=== PATIENT | female | born 1950 ===

== ENCOUNTER 2020-04-22 16:46 | Emergency (ER) | payer MEDICARE, MEDICAID, SELFPAY ==
[2020-04-22 18:23] VITALS: BP 150/84; PULSE 83; RESP 16; TEMP 37.1; O2SAT 99; BMI 37.0
--- NOTE | 2020-04-22 20:00 | ED.SKABFB ---
HPI - Skin/Abscess/Foreign Bdy General Chief complaint: Skin/Abscess/Foreign Body <Dima Beltran NP - Last Filed: 04/22/20 20:09> Stated complaint: itchy all over <Dima Beltran NP - Last Filed: 04/22/20 20:09> Time Seen by Provider: 04/22/20 19:59 <Dima Beltran NP - Last Filed: 04/22/20 20:09> Source: patient <Dima Beltran NP - Last Filed: 04/22/20 20:09> Mode of arrival: ambulatory <Dima Beltran NP - Last Filed: 04/22/20 20:09> Limitations: no limitations <Dima Beltran NP - Last Filed: 04/22/20 20:09> History of Present Illness HPI narrative: rash to legs and arms exposed areas in between the webbing for the past 6 days. <Dima Beltran NP - Last Filed: 04/22/20 20:09> MD complaint: rash <Dima Beltran NP - Last Filed: 04/22/20 20:09> Onset (ago): day(s) <Dima Beltran NP - Last Filed: 04/22/20 20:09> Tetanus up to date: yes <Dima Beltran NP - Last Filed: 04/22/20 20:09> Location: LUE, RUE, LLE and RLE <Dima Beltran NP - Last Filed: 04/22/20 20:09> Severity: moderate <Dima Beltran NP - Last Filed: 04/22/20 20:09> Quality: pruritic <Dima Beltran NP - Last Filed: 04/22/20 20:09> Exacerbating factors: none <Dima Beltran NP - Last Filed: 04/22/20 20:09> Associated symptoms: denies other symptoms <Dima Beltran NP - Last Filed: 04/22/20 20:09> Treatments prior to arrival: none <Dima Beltran NP - Last Filed: 04/22/20 20:09> Related Data Home medications: Previous Rx's Medication Instructions Recorded permethrin [Elimite] 1 applic TOPICAL Q14D #60 g 04/22/20 <Dima Beltran NP - Last Filed: 04/22/20 20:09> Allergies/Adverse reactions: Allergies Allergy/AdvReac Type Severity Reaction Status Date / Time penicillin V Allergy Unknown Unknown Verified 04/22/20 18:25 Penicillins [PENICILLINS] Allergy Unknown N/S Verified 04/22/20 18:25 Sulfacet-R Allergy Unknown Unknown Uncoded 04/22/20 18:25 <Dima Beltran NP - Last Filed: 04/22/20 20:09> Review of Systems Review of Systems: Constitutional: No Weight loss, No Fever, No Chills, No Night Sweats, No Fatigue, No Malaise ENT/Mouth: No Hearing loss, No Ear Pain, No Nasal Congestion, No Sinus Pain, No Hoarseness, No sore throat, No Rhinorrhea, No Swallowing Difficulty Eyes: No Eye Pain, No Swelling, No Redness, No Foreign Body, No Discharge, No Vision Changes Cardiovascular: No Chest Pain, No SOB, No Dyspnea on Exertion, No Orthopnea, No Edema, No Palpitations Respiratory: No Cough, No Sputum, No Wheezing, No Smoke Exposure, No Dyspnea Gastrointestinal: No Nausea, No Vomiting, No Diarrhea, No Constipation, No abdominal Pain, No Hematochezia, No Melena Genitourinary: no irregular bleeding, No Dysuria, No Urinary Frequency, No Hematuria, No Urinary Incontinence, No Urgency, No Flank Pain, No Urinary Flow Changes, No Hesitancy Musculoskeletal: No joint pain, No Myalgias, No Joint Swelling Skin: + Skin Lesions, No rash Neuro: No Weakness, No Numbness, No Paresthesias, No Loss of Consciousness, No Dizziness, No Headache Psych: No Anxiety/Panic, No Depression, No SI/HI/AH/VH, No Social Issues Heme/Lymph: No Bruising, No Bleeding,No Lymphadenopathy Endocrine: No Polyuria, No Polydipsia, No Temperature Intolerance <Dima Beltran NP - Last Filed: 04/22/20 20:09> Yes all other systems are reviewed and are negative <Dima Beltran NP - Last Filed: 04/22/20 20:09> PMFSH Past Medical History Medical History: Medical History (Updated 04/23/20 @ 00:01 by Juliana Braswell) Diabetes High cholesterol <Dima Beltran NP - Last Filed: 04/22/20 20:09> Surgical History: Surgical History (Updated 04/22/20 @ 18:24 by Carina Calles) History of appendectomy <Dima Beltran NP - Last Filed: 04/22/20 20:09> Social History Social History: Social History Advance Directives: No Advance Directives Information Provided: Yes <Dima Beltran NP - Last Filed: 04/22/20 20:09> Physical Exam Vital Signs: Vital Signs: Vital Signs Temp Pulse Resp BP Pulse Ox 04/22/20 18:23 98.7 F 83 16 150/84 H 99 Body Mass Index 37.0 Reviewed <Dimajuancarlos Beltran NP - Last Filed: 04/22/20 20:09> Vital Signs: Vital Signs Temp Pulse Resp BP Pulse Ox 04/22/20 18:23 98.7 F 83 16 150/84 H 99 Body Mass Index 37.0 <Jamey Horn MD - Last Filed: 04/27/20 15:24> Const: General: cooperative and healthy appearing; No acute distress or intoxicated appearing <Dima Beltran NP - Last Filed: 04/22/20 20:09> Nutritional Appearance: average body habitus <Dimajuancarlos Beltran NP - Last Filed: 04/22/20 20:09> Orientation/consciousness: patient oriented x3 <Dima Beltran NP - Last Filed: 04/22/20 20:09> HENMT: Head: Yes normal to inspection <Dimajuancarlos Beltran NP - Last Filed: 04/22/20 20:09> Ears: hearing grossly normal bilaterally <Dimajuancarlos Beltran NP - Last Filed: 04/22/20 20:09> Eyes: General: appearance normal, both eyes and all related structures <Dmia Beltran NP - Last Filed: 04/22/20 20:09> Visual Magallanes: normal visual magallanes by confrontation <Dima MOHINDER Beltran - Last Filed: 04/22/20 20:09> Chest: Chest palpation & inspection: normal inspection of the chest <Dima Beltran NP - Last Filed: 04/22/20 20:09> Resp: Effort & Inspection: normal respiratory effort <Dima Beltran NP - Last Filed: 04/22/20 20:09> Cardio: Jugular venous distension: no JVD <Dima Beltran NP - Last Filed: 04/22/20 20:09> GI: Inspection: Yes normal to inspection <Dima Beltran NP - Last Filed: 04/22/20 20:09> Percussion: Yes normal to percussion <Dima Beltran NP - Last Filed: 04/22/20 20:09> Auscultation: normal bowel sounds <Dima Beltran NP - Last Filed: 04/22/20 20:09> : General: Yes no CVA tenderness <[facility] MOHINDER Beltran - Last Filed: 04/22/20 20:09> Back/Spine/Pelvis: Back: no CVA tenderness <[facility] MOHINDER Beltran - Last Filed: 04/22/20 20:09> Skin: Rashes: rashes noted ( Small less than 0.5 mm macular type indurated rash to the BUE ) <Dimajuancarlos Beltran NP - Last Filed: 04/22/20 20:09> Neuro: General: patient oriented x3 <Dima Beltran NP - Last Filed: 04/22/20 20:09> Extrem: General: Yes normal to inspection <Dima Beltran NP - Last Filed: 04/22/20 20:09> Course Course Course Narrative: Rash consistent with scabies. Home care instructions reviewed. Permethrin Rx provided. <Dima Beltran NP - Last Filed: 04/22/20 20:09> I have reviewed the chart <Jamey Horn MD - Last Filed: 04/27/20 15:24> MDM - Skin/Abscess/Foreign Bdy Differential Diagnosis Differential diagnosis: Likely viral exanthem, dermatophytosis, urticaria, allergic reaction to drug, cellulitis, eczema, insect bites, impetigo and contact dermatitis; Unlikely abscess of skin or subcutaneous tissue and herpes zoster <Dima Beltran NP - Last Filed: 04/22/20 20:09> Discharge Plan Discharge Clinical Impression: Scabies <Dima Beltran NP - Last Filed: 04/22/20 20:09> Patient Disposition: Home, Self-Care <Dima Beltran NP - Last Filed: 04/22/20 20:09> Instructions: Scabies (ED) <Dima Beltran NP - Last Filed: 04/22/20 20:09> Prescriptions: New permethrin [Elimite] 5 % cream 1 applic topical Q14D Qty: 60 RF: 1 <Dima Beltran NP - Last Filed: 04/22/20 20:09> Interventions: ED Discharge Assessment Last Done: 04/22/20 20:08 <Dima Beltran NP - Last Filed: 04/22/20 20:09> Discharge Date/Time: 04/22/20 20:00 <Dima Beltran NP - Last Filed: 04/22/20 20:09>
== END 2020-04-22 20:00 | disposition home or self-care (01) ==
PROVIDERS: Emergency Provider Emergency Medicine; PCP Internal Medicine
DX: B86 Scabies (principal); E11.9 Type 2 diabetes mellitus without complications
CPT/HCPCS: 99283

== ENCOUNTER 2020-04-27 17:37 | Emergency (ER) | payer MEDICARE, MEDICAID, SELFPAY ==
[2020-04-27 18:03] VITALS: BP 116/71; PULSE 86; RESP 18; TEMP 36.2; O2SAT 98; BMI 38.0
--- NOTE | 2020-04-27 19:01 | ED.SKABFB ---
HPI - Skin/Abscess/Foreign Bdy General Chief complaint: Skin/Abscess/Foreign Body Stated complaint: rash Source: patient Mode of arrival: ambulatory Limitations: no limitations History of Present Illness HPI narrative: Patient presents to ED for itchy rash on upper or lower extremities. Patient denies any fever and chills. Patient states she was seen last week for scabies and given promethazine and took it only once. Patient states he still having itchiness and rash. Patient states no chest pain, shortness of breath, swelling of lips, tongue, or sensation of throat closing. MD complaint: rash Related Data Previous Rx's Medication Instructions Recorded permethrin [Elimite] 1 applic TOPICAL Q14D #60 g 04/22/20 clindamycin HCl 300 mg PO Q8H #30 cap 04/27/20 diphenhydramine HCl [Benadryl] 25 mg PO TID PRN #21 cap 04/27/20 permethrin 1 applic TOPICAL Q14D #60 g 04/27/20 prednisone 40 mg PO DAILY #10 tab 04/27/20 Allergies Allergy/AdvReac Type Severity Reaction Status Date / Time penicillin V Allergy Unknown Unknown Verified 04/22/20 18:25 Penicillins [PENICILLINS] Allergy Unknown N/S Verified 04/22/20 18:25 Sulfacet-R Allergy Unknown Unknown Uncoded 04/22/20 18:25 Review of Systems Review of Systems: Patient presents to ED for rash on upper lower extremities. Denies any fever, chills, going to the cox, tick bite, headache, swelling of lips, swelling of tongue, sensation of throat closing, shortness of breath, chest pain, diarrhea, headache, neck stiffness, or any other concerning symptoms. Yes all other systems are reviewed and are negative PMFSH Past Medical History Medical History (Updated 04/27/20 @ 19:17 by LOPEZ Ferreira) Diabetes High cholesterol Surgical History History of appendectomy Social History Social History Alcohol intake: never Smoked in Last 30 Days: No Use of substances other than those prescribed or required for medical reasons: No Advance Directives: No Advance Directives Information Provided: No Physical Exam Vital Signs: Vital Signs: Vital Signs Temp Pulse Resp BP Pulse Ox 04/27/20 18:03 97.1 F 86 18 116/71 98 Body Mass Index 38.0 Const: General: cooperative, healthy appearing, comfortable, no acute distress and well developed Orientation/consciousness: oriented to person, oriented to place, oriented to time and patient oriented x3 HENMT: Head: Yes normal to inspection Eyes: General: appearance normal, both eyes and all related structures Neck: Neck: Yes normal visual inspection and Yes full ROM Chest: Chest palpation & inspection: normal inspection of the chest and normal palpation of entire chest wall Resp: Effort & Inspection: normal respiratory effort and able to speak in complete sentences Cardio: Jugular venous distension: no JVD Heart sounds: S1 normal heart sound present and S2 normal heart sound present GI: Inspection: Yes normal to inspection Palpation (GI): Soft to palpation, not firm, nontender, no guarding and not rigid : General: No CVA tenderness and Yes no CVA tenderness Back/Spine/Pelvis: Back: no CVA tenderness, No CVA tenderness and No back tenderness Skin: Other: appears to be like patient has bites/bug bites on upper and lower extremities. Presented scabies. Negative any fluctuance to indicate any abscess. Negative any vesicular lesions to indicate shingles. Upon further evaluation patient shows right ankle small wound with slight erythematous and clear drainage. Patient states she was scratching so hard she created a little wound that is infected. Neuro: General: oriented to person, oriented to place, oriented to time, patient oriented x3 and gait normal Course Reevaluation(s) Reevaluation #1: History physical exam indicate scabies/bug bites. Patient discharged with permethrin, prednisone, Benadryl, and clindamycin. Patient given clindamycin for infected wound Time: 19:15 MDM - Skin/Abscess/Foreign Bdy MDM Narrative Medical decision making narrative: scabies. Wound infection. Discharge Plan Discharge Clinical Impression: Scabies, Wound cellulitis Patient Disposition: Home, Self-Care Instructions: Wound Infection (ED), Scabies (ED) Additional Instructions: Return to the ED immediately for any worsening rash, swelling of extremities, red streak, fever, chills, pus discharge from wound on ankle, severe pain of ankle /foot, weakness, or any other concerning symptoms. Prescriptions: New permethrin 5 % cream 1 applic topical Q14D Qty: 60 RF: 0 prednisone 20 mg tablet 40 mg PO DAILY Qty: 10 RF: 0 diphenhydramine HCl [Benadryl] 25 mg capsule 25 mg PO TID PRN (Reason: itching) Qty: 21 RF: 0 clindamycin HCl 300 mg capsule 300 mg PO Q8H Qty: 30 RF: 0 No Action permethrin [Elimite] 5 % cream 1 applic topical Q14D Qty: 60 RF: 1 Referrals: Cheyenne Hollis MD [Primary Care Provider] - 2 days ( generalized Scabies and right ankle wound infection.) Interventions: ED Discharge Assessment Last Done: 04/27/20 19:24 Discharge Date/Time: 04/27/20 19:26
== END 2020-04-27 19:26 | disposition home or self-care (01) ==
PROVIDERS: Emergency Provider Emergency Medicine Emergency Medical Services; PCP Internal Medicine
DX: B86 Scabies (principal); L03.115 Cellulitis of right lower limb; E11.9 Type 2 diabetes mellitus without complications
CPT/HCPCS: 99283; 99284

== ENCOUNTER 2020-05-25 05:32 | Outpatient (REF) | payer MEDICARE, MEDICAID, SELFPAY | END 2020-05-25 05:33 | disposition home or self-care (01) | LOC: HO.RADIR 05:32 | PROVIDERS: Visit Provider Anesthesiology | DX: Z13.89 Encounter for screening for other disorder (principal) ==

== ENCOUNTER 2020-05-25 05:34 | Outpatient (REF) | payer MEDICARE, MEDICAID, SELFPAY | END 2020-05-25 05:35 | disposition home or self-care (01) | LOC: HO.RADIR 05:34 | PROVIDERS: Visit Provider Anesthesiology | DX: Z13.89 Encounter for screening for other disorder (principal) ==

== ENCOUNTER 2020-06-08 05:58 | Outpatient (REF) | payer MEDICARE, MEDICAID, SELFPAY | END 2020-06-08 05:59 | disposition home or self-care (01) | LOC: HO.RADIR 05:58 | PROVIDERS: PCP Internal Medicine; Visit Provider Anesthesiology | DX: Z13.89 Encounter for screening for other disorder (principal) ==

== ENCOUNTER 2020-07-13 05:22 | Outpatient (REF) | payer MEDICARE, MEDICAID, SELFPAY | END 2020-07-13 05:23 | disposition home or self-care (01) | LOC: HO.RADIR 05:22 | PROVIDERS: Visit Provider Anesthesiology | DX: Z13.89 Encounter for screening for other disorder (principal) | CPT/HCPCS: J3300; Q9967 ==

== ENCOUNTER → 2021-07-18 13:02 | Outpatient (BNVA) | payer MEDICARE, MEDICAID, SELFPAY | PROVIDERS: PCP Internal Medicine; Referring Provider Internal Medicine; Visit Provider Nurse Practitioner Family | DX: Z12.11 Encounter for screening for malignant neoplasm of colon (principal); K58.2 Mixed irritable bowel syndrome; K21.9 Gastro-esophageal reflux disease without esophagitis | CPT/HCPCS: 99202 ==

== ENCOUNTER 2021-07-21 15:10 | Outpatient (REF) | payer MEDICARE, MEDICAID, SELFPAY | END 2021-07-21 15:11 | disposition home or self-care (01) | LOC: HO.LNP 15:10 | PROVIDERS: Visit Provider Nurse Practitioner Family | DX: K21.9 Gastro-esophageal reflux disease without esophagitis (principal) | CPT/HCPCS: 87338 ==

== ENCOUNTER 2021-08-04 15:18 | Outpatient (REF) | payer MEDICARE, MEDICAID, SELFPAY ==
--- NOTE | ~2021-08-04 | MM_ITS ---
EXAMINATION: MM SCREENING DIGITAL BREAST TOMOSYNTHESIS, BILATERAL CLINICAL INFORMATION: Screening. Asymptomatic. The lifetime risk of breast cancer based on the Tyrer-Cuzick Model is 2.6%. COMPARISON: Mammography: February 09, 2014 and studies dating back to December 06, 2011 TECHNIQUE: Digital breast tomosynthesis is performed in both the craniocaudal and mediolateral oblique views along with computer-aided detection (CAD). Synthesized 2D images are generated from the tomosynthesis. FINDINGS: There are scattered areas of fibroglandular density (ACR BI-RADS breast composition Category b). There are no significant masses, abnormal calcifications, or other abnormalities. MM/MM tomosynthesis screening BI IMPRESSION: There are no significant changes from prior study. ASSESSMENT: BI-RADS 1: Negative RECOMMENDATION: Routine annual mammography screening. This patient's information was entered into a reminder system with a target due date for their next mammogram.
== END 2021-08-04 15:19 | disposition home or self-care (01) ==
LOC: HO.MAMMO 15:18
PROVIDERS: PCP Internal Medicine; Visit Provider Internal Medicine
DX: Z12.31 Encounter for screening mammogram for malignant neoplasm of breast (principal)
CPT/HCPCS: 77063; 77067

== ENCOUNTER 2021-08-22 11:59 | Outpatient (REF) | payer MEDICARE, MEDICAID, SELFPAY ==
[2021-08-22 13:43] LABS: Hematocrit 42.3 % (37.0-47.0); Hemoglobin 13.2 g/dl (12.0-16.0); Mean Corpuscular HGB Conc 31.2 g/dl (31.0-35.0); Mean Corpuscular Hemoglobin 26.1 pg (27.0-33.0); Mean Corpuscular Volume 83.6 fL (80.0-98.0); Mean Platelet Volume 11.9 fL (9.4-12.3); Platelet Count 247 X10*3/uL (160-400); Red Blood Count 5.06 X10*6/uL (4.20-5.50); Red Cell Distribution Width 14.2 % (11.0-16.0); White Blood Count 13.2 X10*3/uL (4.8-10.8)
[2021-08-22 14:08] LABS: Alanine Aminotransferase 8 U/L (0-31); Albumin Level 4.2 g/dL (3.5-5.0); Alkaline Phosphatase 105 U/L (39-117); Anion Gap 13 (12-20); Aspartate Amino Transferase 13 U/L (5-31); Bilirubin Total 0.4 mg/dL (0.0-1.0); Blood Urea Nitrogen 20 mg/dL (9-16); Calcium 9.6 mg/dL (8.4-10.2); Carbon Dioxide 28 mmol/L (22-29); Chloride 104 mmol/L (96-108); Estimated Glomerular Filt Rate > 60; Glucose Random 107 mg/dL (60-115); Sodium 141 mmol/L (135-145); Total Protein 7.1 g/dL (6.5-8.0)
[2021-08-22 14:37] LABS: Folate 10.5 ng/mL (> or = 4.0); Vitamin B12 313 pg/mL (200-900)
[2021-08-26 08:27] LABS: Transglutaminase IgA <1.0 U/mL
[2021-08-26 13:16] LABS: Vitamin D 25-OH, D2 <4 ng/mL; Vitamin D 25-OH, D3 43 ng/mL; Vitamin D 25-OH, Total 43 ng/mL (30-100)
== END 2021-08-22 12:00 | disposition home or self-care (01) ==
LOC: HO.LAB 11:59
PROVIDERS: PCP Internal Medicine; Referring Provider Internal Medicine; Visit Provider Nurse Practitioner Family
DX: Z01.818 Encounter for other preprocedural examination (principal); R10.11 Right upper quadrant pain; R14.0 Abdominal distension (gaseous); R19.7 Diarrhea, unspecified; E55.9 Vitamin D deficiency, unspecified; K58.9 Irritable bowel syndrome, unspecified; K21.9 Gastro-esophageal reflux disease without esophagitis
CPT/HCPCS: 36415; 80053; 82306; 82607; 82746; 84443; 85027; 86364; 99212

== ENCOUNTER 2021-10-07 09:43 | Day surgery (SDC) | payer MEDICARE, MEDICAID, SELFPAY ==
--- NOTE | 2021-10-06 09:13 | HO.ANESPROP2 ---
Documented by User: Zoya Fox NP 10/06/21 09:14 HPI - Anesthesia Eval Consult details Narrative: 71yo F for Upper Endoscopy and Colonoscopy PMFSH Active Problems Active Problems: All Active Problems (Updated 05/24/20 @ 16:35 by Татьяна Gill NP) Postlaminectomy syndrome (Acute) Past Medical History Medical History (Updated 05/24/20 @ 16:35 by Татьяна Gill NP) Diabetes High cholesterol Family History Family History Father Cancer Paternal Grandmother Cancer Other Diabetes Surgical History Surgical History History of appendectomy History of esophagogastroduodenoscopy (EGD) Hx of colonoscopy Social History Social History Alcohol intake: never Patient Tobacco Use Status: Former Tobacco user Tobacco use type: Cigarette Use of substances other than those prescribed or required for medical reasons: No Are you DNR?: No Advance Directives: No Advance Directives Information Provided: Yes Recently lost weight without trying: Yes How much weight loss: 14-23 pounds Nutrition Risks: No Nutritional Risk Meds Allergies Allergy/AdvReac Type Severity Reaction Status Date / Time penicillin V Allergy Unknown Unknown Verified 08/22/21 12:01 Penicillins [PENICILLINS] Allergy Unknown N/S Verified 08/22/21 12:01 Sulfacet-R Allergy Unknown Unknown Uncoded 07/18/21 13:10 Home Medications Medication Instructions Recorded Confirmed Last Taken Type glipizide 5 mg tablet, extended 1 tab PO DAILY 10/07/21 10/07/21 Unknown History release 24 hr sitagliptin 50 mg-metformin 1,000 1 tab PO BID 10/07/21 10/07/21 Unknown History mg tablet (Janumet) sitagliptin 50 mg-metformin 1,000 1 tab PO BID 10/07/21 10/07/21 Unknown History mg tablet (Julumet) Exam Exam Date and Time: October 06, 2021 0913 Pertinent Lab Results Pertinent Lab Results: Laboratory Tests 08/22/21 08/22/21 13:23 13:23 WBC 13.2 H Hgb 13.2 Hct 42.3 Plt Count 247 Sodium 141 Potassium 4.0 Chloride 104 Carbon Dioxide 28 BUN 20 H Creatinine 0.89 Assessment and Plan Assessment Anesthesia Assessment: Chart Reviewed Documented by User: Fariba Langford MD 10/07/21 12:03 [facility] Past Medical History Medical History (Updated 05/24/20 @ 16:35 by Татьяна Gill NP) Diabetes High cholesterol Family History Family History Father Cancer Paternal Grandmother Cancer Other Diabetes Family history of problems with anesthesia: No Surgical History Surgical History History of appendectomy History of esophagogastroduodenoscopy (EGD) Hx of colonoscopy History of Problems with Anesthesia: No Social History Social History Alcohol intake: never Patient Tobacco Use Status: Former Tobacco user Tobacco use type: Cigarette Use of substances other than those prescribed or required for medical reasons: No Are you DNR?: No Advance Directives: No Advance Directives Information Provided: Yes Recently lost weight without trying: Yes How much weight loss: 14-23 pounds Nutrition Risks: No Nutritional Risk Meds Allergies Allergy/AdvReac Type Severity Reaction Status Date / Time penicillin V Allergy Unknown Unknown Verified 08/22/21 12:01 Penicillins [PENICILLINS] Allergy Unknown N/S Verified 08/22/21 12:01 Sulfacet-R Allergy Unknown Unknown Uncoded 07/18/21 13:10 Home Medications Medication Instructions Recorded Confirmed Last Taken Type glipizide 5 mg tablet, extended 1 tab PO DAILY 10/07/21 10/07/21 Unknown History release 24 hr sitagliptin 50 mg-metformin 1,000 1 tab PO BID 10/07/21 10/07/21 Unknown History mg tablet (Janumet) sitagliptin 50 mg-metformin 1,000 1 tab PO BID 10/07/21 10/07/21 Unknown History mg tablet (Janumet) Exam Airway Mallampati Class: II (Missing a couple nothing loose) TM Dist: >3cm Neck ROM: Full Heart: rrr Lungs: cta Assessment and Plan Assessment Anesthesia Assessment: Anesthesia Plan Discussed and Chart Reviewed Final Anesthetic Review Family History of Problems with Anesthesia: No History of Problems with Anesthesia: No NPO: Yes ASA Class: II Final Preanesthetic Review: No Changes in Pt Med Stat, Meds/Allgs Chart Reviewed and Consent Obtained/Reviewed Patient Risk: Intermediate Procedure Risk: Intermediate Anesthetic Plan Anesthetic Plan: MAC: Disposition: Standard PACU
[2021-10-07 11:20] VITALS: BMI 34.0
[2021-10-07 11:28] VITALS: BP 127/64; PULSE 98; RESP 16; TEMP 36.5; O2SAT 98
[2021-10-07] MEDS: Lactated Ringers 1,000 ML 100 ML IVCONT (11:43)
[2021-10-07 11:50] LABS: Glucose, Whole Blood 122 mg/dL (60-115)
--- NOTE | 2021-10-07 11:58 | MHC.SHP ---
Pre-Procedural Eval Section A Date of Service: 10/07/21 The patient is an INPATIENT: No The History & Physical has been completed within 30 days and I have reviewed it.: No Section B Chief Complaint: Screening, GERD Details of Present Illness: Screening, GERD, IBS Relevant Family History (Specify if Yes): No Relevant Social History: None Present Medications: see Short Stay Collaborative assessment Medical History: Significant History (Diabetes High cholesterol) History of Previous Operations: Relevant previous surgery/procedure and date(s) (EGD, colon, status post appendectomy) Allergies: Allergies Allergy/AdvReac Type Severity Reaction Status Date / Time penicillin V Allergy Unknown Unknown Verified 08/22/21 12:01 Penicillins [PENICILLINS] Allergy Unknown N/S Verified 08/22/21 12:01 Sulfacet-R Allergy Unknown Unknown Uncoded 07/18/21 13:10 Review of Systems Sugical H&P ROS: Negative: Constitution, Cardiovascular and Respiratory and Yes, Specify: Gastrointestinal (GERD, constipation) Exam Surgical H&P Exam: Normal: Heart, Normal: Lungs, Normal: Extremities and Normal: Abdomen Plan Diagnosis/Plan: Unchanged I have reviewed the history and physical and performed a pertinent physical examination on my patient. No changes have occurred unless specified.
--- NOTE | 2021-10-07 12:01 | PM.OP ---
Brief Operative Note Date of Service: 10/07/21 Pre-op diagnosis: Colon cancer screening, history of colon polyps, GERD, abdominal bloating, IBS with constipation Post-op diagnosis: other (Gastric polyps, gastritis, colon polyp, diverticulosis, hemorrhoids) Procedure: FLEXIBLE TRANSORAL UPPER GASTROINTESTINAL ENDOSCOPY WITH BIOPSIES AND COLONOSCOPY TILL CECUM WITH SNARE POLYPECTOMY UPPER ENDOSCOPY Consent: Indications for the procedure and potential complications of bleeding, perforation, reaction to medications and missed diagnosis were discussed with the patient and informed consent was obtained. Instrument: Olympus GIF H 190 mid size upper endoscope Monitoring: Vital signs and clinical assessment, continuous EKG monitoring, Pulse oximetry, Carbon Dioxide monitoring and blood pressure monitoring were done throughout the procedure. Procedure: The patient was placed in the left lateral decubitis position and pre-procedure medications were administered and a bite block was placed. The endoscope was inserted into the mouth and advanced under direct vision to the third part of duodenum. A careful inspection was made as the upper endoscope was withdrawn including a retroflexed examination of the proximal stomach; Findings and interventions are described below. Findings: Larynx: Normal Esophagus: GE junction at 38 cms. No esophagitis or Fountain's. Stomach: A few 5 to 8 mm benign appearing polyps in the gastric body - biopsied. Moderate diffuse gastric erythema. Biopsies were obtained. Grade 2 flap valve on retroflexed examination of the cardia. Duodenum: Normal bulb and descending duodenum. Biopsies were obtained from 3rd part of duodenum to check for celiac sprue. Intervention: Biopsies as noted above COLONOSCOPY PROCEDURE NOTE Consent: Indications for the procedure and potential complications of bleeding, perforation, reaction to medications and missed diagnosis were discussed with the patient and informed consent was obtained. Instrument: Olympus PCF H 190 L variable stiffness pediatric colonoscope Monitoring: Vital signs and clinical assessment, intermittent blood pressure monitoring, continuous EKG monitoring, Pulse oximetry and Carbon Dioxide monitoring were done throughout the procedure. Colon withdrawl time was 21 minutes. Procedure: The patient was placed in the left lateral decubitis position and pre-procedure medications were administered. After a digital rectal examination of the ano-rectum, the video colonoscope was inserted into the rectum and advanced through the colon to the cecum. The colonoscope was slowly withdrawn in a retrograde panoramic fashion and the colon mucosa was carefully examined including a retroflexed view of the rectum. Findings and interventions are described below. Procedure Difficulty: : Without difficulty Findings: Terminal Ileum: Not evaluated Cecum: A 10-12 mm sessile polyp removed with a hot snare Ascending Colon: Normal Transverse Colon: Normal Descending Colon: Normal Sigmoid Colon: Moderate diverticulosis Rectum: Normal Ano-rectum: Moderate internal hemorrhoids Colon preparation: Good after copious irrigation Impression and Post Procedure Diagnosis: Endoscopy Findings: STOMACH: A few 5 to 8 mm benign appearing polyps in the gastric body - biopsied. Moderate diffuse gastric erythema. Biopsies were obtained. DUODENUM: Normal - biopsied to check for celiac sprue. Colonoscopy Findings: One medium sized polyp removed Moderate diverticulosis seen in the entire colon Moderate hemorrhoids on retroflexed exam. Plan: Await pathology results Patient has an appointment on 11/16/21 in the [facility] with Pratibha Martinez FNP-BC . Repeat Colonoscopy interval based on path results - in 3 years if polyps are adenomatous and 5 years if polyps are hyperplastic (due to a hx of colon polyps). Above findings were reviewed with the patient and gastric polyps, colon polyps and diverticulosis handouts were given in the discharge area Surgeon: Merry Ramos MD Anesthesia: MAC (Dr Duncan & Dr Eid) Was an Knitting Machine Fixer used for this Procedure?: No Knitting Machine Fixer: Adura Julian Estimated blood loss (mL): 0 Pathology: other (A. small bowel bxs, R/O celiac B. gastric antrum bxs, R/O H. pylori C. gastric polyp D. cecal polyp) Condition: stable Disposition: PACU
--- NOTE | 2021-10-07 12:05 | P.OP_ITS ---
Operative Note Operative Note Date of Service: 10/07/21 Narrative: Pre-op diagnosis: Colon cancer screening, history of colon polyps, GERD, abdominal bloating, IBS with constipation Post-op diagnosis:?other (Gastric polyps, gastritis, colon polyp, diverticulosis, hemorrhoids) Procedure: FLEXIBLE TRANSORAL UPPER GASTROINTESTINAL ENDOSCOPY WITH BIOPSIES AND COLONOSCOPY TILL CECUM WITH SNARE POLYPECTOMY UPPER ENDOSCOPY Consent:?Indications for the procedure and potential complications of bleeding, perforation, reaction to medications and missed diagnosis were discussed with the patient and informed consent was obtained. Instrument:?Olympus GIF H 190 mid size upper endoscope Monitoring: Vital signs and clinical assessment, continuous EKG monitoring, Pulse oximetry, Carbon Dioxide monitoring and blood pressure monitoring were done throughout the procedure. Procedure:?The patient was placed in the left lateral decubitis position and pre-procedure medications were administered and a bite block was placed. The endoscope was inserted into the mouth and advanced under direct vision to the third part of duodenum. A careful inspection was made as the upper endoscope was withdrawn including a retroflexed examination of the proximal stomach; Findings and interventions are described below. Findings: Larynx:? Normal Esophagus:?GE junction at 38 cms.? No esophagitis or Fountain's. Stomach:?A few 5 to 8 mm benign appearing polyps in the gastric body - biopsied. Moderate diffuse gastric erythema. Biopsies were obtained. Grade 2 flap valve on retroflexed examination of the cardia. Duodenum:?Normal bulb and descending duodenum.? Biopsies were obtained from 3rd part of duodenum to check for celiac sprue. Intervention:?Biopsies as noted above COLONOSCOPY PROCEDURE NOTE Consent:?Indications for the procedure and potential complications of bleeding, perforation, reaction to medications and missed diagnosis were discussed with the patient and informed consent was obtained. Instrument:?Olympus PCF H 190 L variable stiffness pediatric colonoscope Monitoring:?Vital signs and clinical assessment, intermittent blood pressure monitoring, continuous EKG monitoring, Pulse oximetry and Carbon Dioxide monitoring were done throughout the procedure. Colon withdrawl time was 21 minutes. Procedure:?The patient was placed in the left lateral decubitis position and pre-procedure medications were administered. After a digital rectal examination of the ano-rectum, the video colonoscope was inserted into the rectum and advanced through the colon to the cecum. The colonoscope was slowly withdrawn in a retrograde panoramic fashion and the colon mucosa was carefully examined including a retroflexed view of the rectum. Findings and interventions are described below. Procedure Difficulty:?: Without difficulty Findings: Terminal Ileum: Not evaluated Cecum:? A 10-12 mm sessile polyp removed with a hot snare Ascending Colon:??Normal Transverse Colon:??Normal Descending Colon:? Normal Sigmoid Colon:??Moderate diverticulosis Rectum:??Normal Ano-rectum:??Moderate internal hemorrhoids Colon preparation:? Good after copious irrigation Impression and Post Procedure Diagnosis: Endoscopy Findings: STOMACH: A few 5 to 8 mm benign appearing polyps in the gastric body - biopsied. Moderate diffuse gastric erythema. Biopsies were obtained. DUODENUM: Normal - biopsied to check for celiac sprue. Colonoscopy Findings: One medium sized polyp removed Moderate diverticulosis seen in the entire colon Moderate hemorrhoids on retroflexed exam. Plan: Await pathology results Patient has an appointment on 11/16/21 in the [facility] with Pratibha Martinez FNP- [facility] . Repeat Colonoscopy interval based on path results - in 3 years if polyps are adenomatous and 5 years if polyps are hyperplastic (due to a hx of colon polyps ). Above findings were reviewed with the patient and gastric polyps, colon polyps and diverticulosis handouts were given in the discharge area Surgeon: Merry Ramos MD Anesthesia:?MAC (Dr Duncan & Dr Eid) Was an Cobol Programmer used for this Procedure?:?No Cobol Programmer:?Audra Julian Estimated blood loss (mL):?0 Pathology:?other (A. small bowel bxs, R/O celiac? B. gastric antrum bxs, R/O H. pylori? C. gastric polyp? D. cecal polyp) Condition:?stable Disposition:?PACU
[2021-10-07 13:11] VITALS: BP 106/58; PULSE 99; RESP 16; TEMP 36.3; O2SAT 97
[2021-10-07 13:26] VITALS: BP 107/65; PULSE 90; RESP 16; TEMP 36.3; O2SAT 99
== END 2021-10-07 13:59 | disposition home or self-care (01) ==
PROVIDERS: PCP Internal Medicine; Visit Provider Internal Medicine Gastroenterology
PROC: (CPT 45385; principal; 2021-10-07 11:10)
DX: Z12.11 Encounter for screening for malignant neoplasm of colon (principal); D12.0 Benign neoplasm of cecum; K57.30 Diverticulosis of large intestine without perforation or abscess without bleeding; K64.8 Other hemorrhoids; K58.1 Irritable bowel syndrome with constipation; Z86.010 Personal history of colon polyps; K21.9 Gastro-esophageal reflux disease without esophagitis; K29.70 Gastritis, unspecified, without bleeding; K31.7 Polyp of stomach and duodenum; E11.9 Type 2 diabetes mellitus without complications; E78.00 Pure hypercholesterolemia, unspecified; Z79.899 Other long term (current) drug therapy; Z88.0 Allergy status to penicillin
CPT/HCPCS: 45385; 43239; 82947; 88305; 88342

== ENCOUNTER 2021-11-16 14:32 | Outpatient (REF) | payer MEDICARE, MEDICAID, SELFPAY ==
--- NOTE | ~2021-11-16 | XR_ITS ---
EXAMINATION: XR SHOULDER, RIGHT XR SHOULDER, LEFT CLINICAL INFORMATION: Bilateral shoulder pain COMPARISON: None TECHNIQUE: Each shoulder is imaged in 4 views. There are total of 8 views. FINDINGS: Right: Normal bony mineralization. No fracture or destructive process or visible rotator cuff calcifications. The acromioclavicular alignment is normal. There are mild degenerative changes AC joint with superior spurring. There is spurring from the superior lateral acromium. There is laxity of the glenohumeral joint with low seating of the humeral head articulating with the inferior half of the glenoid fossa. Left: Normal bony mineralization. No fracture or destructive process. There is mild calcific tendinosis in region of distal superior rotator cuff adjacent to greater tuberosity. The acromioclavicular alignment is normal. There are mild degenerative changes AC joint with superior spurring. There is spurring from the superior lateral acromium. Mild laxity of the glenohumeral joint of lesser severity than that on the right with the humeral head articulating with the lower glenoid fossa. XR/XR shoulder LT min 2V IMPRESSION: Right: -Degenerative changes acromioclavicular joint. Spurring superior lateral acromium at origin deltoid. -Laxity glenohumeral joint with low seating of the humeral head articulating with the inferior half of the glenoid fossa. Left: -Mild calcific tendinosis distal superior rotator cuff. -Degenerative changes acromioclavicular joint. Spurring superior lateral acromium at origin deltoid. -Laxity glenohumeral joint with low seating of the humeral head, lesser severity than right.
--- NOTE | ~2021-11-16 | XR_ITS ---
EXAMINATION: XR SHOULDER, RIGHT XR SHOULDER, LEFT CLINICAL INFORMATION: Bilateral shoulder pain COMPARISON: None TECHNIQUE: Each shoulder is imaged in 4 views. There are total of 8 views. FINDINGS: Right: Normal bony mineralization. No fracture or destructive process or visible rotator cuff calcifications. The acromioclavicular alignment is normal. There are mild degenerative changes AC joint with superior spurring. There is spurring from the superior lateral acromium. There is laxity of the glenohumeral joint with low seating of the humeral head articulating with the inferior half of the glenoid fossa. Left: Normal bony mineralization. No fracture or destructive process. There is mild calcific tendinosis in region of distal superior rotator cuff adjacent to greater tuberosity. The acromioclavicular alignment is normal. There are mild degenerative changes AC joint with superior spurring. There is spurring from the superior lateral acromium. Mild laxity of the glenohumeral joint of lesser severity than that on the right with the humeral head articulating with the lower glenoid fossa. XR/XR shoulder RT min 2V IMPRESSION: Right: -Degenerative changes acromioclavicular joint. Spurring superior lateral acromium at origin deltoid. -Laxity glenohumeral joint with low seating of the humeral head articulating with the inferior half of the glenoid fossa. Left: -Mild calcific tendinosis distal superior rotator cuff. -Degenerative changes acromioclavicular joint. Spurring superior lateral acromium at origin deltoid. -Laxity glenohumeral joint with low seating of the humeral head, lesser severity than right.
== END 2021-11-16 14:33 | disposition home or self-care (01) ==
LOC: HO.XRAY 14:32
PROVIDERS: PCP Internal Medicine; Referring Provider Internal Medicine; Visit Provider Nurse Practitioner Family
DX: M25.511 Pain in right shoulder (principal); M25.512 Pain in left shoulder; D36.9 Benign neoplasm, unspecified site; K21.9 Gastro-esophageal reflux disease without esophagitis; K59.01 Slow transit constipation; Z98.890 Other specified postprocedural states
CPT/HCPCS: 73030; 99212

== ENCOUNTER → 2021-12-30 13:54 | Outpatient (BNVA) | payer MEDICARE, MEDICAID, SELFPAY | PROVIDERS: PCP Internal Medicine; Visit Provider Physician Assistant | DX: M75.22 Bicipital tendinitis, left shoulder (principal); M75.21 Bicipital tendinitis, right shoulder | CPT/HCPCS: 20610; 99202; J1020 ==

== ENCOUNTER → 2022-02-15 14:46 | Outpatient (BNVA) | payer MEDICARE, MEDICAID, SELFPAY | PROVIDERS: PCP Internal Medicine; Referring Provider Internal Medicine; Visit Provider Nurse Practitioner Family | DX: K21.9 Gastro-esophageal reflux disease without esophagitis (principal); K59.01 Slow transit constipation | CPT/HCPCS: 99212 ==

== ENCOUNTER → 2022-06-06 13:30 | Outpatient (BNVA) | payer MEDICARE, MEDICAID, SELFPAY | PROVIDERS: PCP Internal Medicine; Visit Provider Orthopaedic Surgery | DX: R22.32 Localized swelling, mass and lump, left upper limb (principal) | CPT/HCPCS: 99202 ==

== ENCOUNTER → 2022-08-16 08:31 | Outpatient (BNVA) | payer MEDICARE, MEDICAID, SELFPAY | PROVIDERS: PCP Internal Medicine; Visit Provider Orthopaedic Surgery | DX: R22.32 Localized swelling, mass and lump, left upper limb (principal) | CPT/HCPCS: 99212 ==

== ENCOUNTER → 2022-09-20 14:31 | Outpatient (BNVA) | payer MEDICARE, MEDICAID, SELFPAY | PROVIDERS: PCP Internal Medicine; Visit Provider Orthopaedic Surgery ==

== ENCOUNTER 2022-12-08 13:29 | Outpatient (REF) | payer MEDICARE, MEDICAID, SELFPAY ==
--- NOTE | ~2022-12-08 | XR_ITS ---
EXAMINATION: 1. RADIOGRAPHS THORACIC SPINE 2. RADIOGRAPHS LUMBAR SPINE CLINICAL INFORMATION: Postlaminectomy syndrome COMPARISON: Lumbar spine MRI February 16, 2011 and thoracic and lumbar spine x-rays February 09, 2011 TECHNIQUE: 3 views of the thoracic spine and 6 views of the lumbar spine were obtained. FINDINGS: Thoracic spine: Normal alignment of the thoracic spine. Thoracic vertebral body heights are maintained. There is mild disc space narrowing within the mid and lower thoracic spine. Moderate-sized osteophytes are present, also particularly within the mid to lower thoracic spine. Visualized ribs and lung parenchyma are unremarkable. Lumbar spine: 5 nonrib-bearing lumbar vertebral bodies are visualized. There is minimal dextroscoliosis of the lumbar spine which is possibly positional. Alignment is otherwise unremarkable. No change in alignment with flexion or extension positioning. Lumbar vertebral body heights are maintained. There is moderate to severe narrowing of the L2/3 disc space height with mild to moderate narrowing of the L4/5 and L5/S1 disc space height. Small to moderate-sized osteophytes are scattered throughout the lumbar spine. Cannot exclude calculi on the left kidney. XR/XR lumbar spine 6V w bending IMPRESSION: 1. Mild to moderate diffuse degenerative changes of the thoracolumbar spine. No compression deformity. 2. Moderate degenerative changes of the lumbar spine, most prominent at L2/3. No compression deformity.
--- NOTE | ~2022-12-08 | XR_ITS ---
EXAMINATION: 1. RADIOGRAPHS THORACIC SPINE 2. RADIOGRAPHS LUMBAR SPINE CLINICAL INFORMATION: Postlaminectomy syndrome COMPARISON: Lumbar spine MRI February 16, 2011 and thoracic and lumbar spine x-rays February 09, 2011 TECHNIQUE: 3 views of the thoracic spine and 6 views of the lumbar spine were obtained. FINDINGS: Thoracic spine: Normal alignment of the thoracic spine. Thoracic vertebral body heights are maintained. There is mild disc space narrowing within the mid and lower thoracic spine. Moderate-sized osteophytes are present, also particularly within the mid to lower thoracic spine. Visualized ribs and lung parenchyma are unremarkable. Lumbar spine: 5 nonrib-bearing lumbar vertebral bodies are visualized. There is minimal dextroscoliosis of the lumbar spine which is possibly positional. Alignment is otherwise unremarkable. No change in alignment with flexion or extension positioning. Lumbar vertebral body heights are maintained. There is moderate to severe narrowing of the L2/3 disc space height with mild to moderate narrowing of the L4/5 and L5/S1 disc space height. Small to moderate-sized osteophytes are scattered throughout the lumbar spine. Cannot exclude calculi on the left kidney. XR/XR thoracic spine 3V IMPRESSION: 1. Mild to moderate diffuse degenerative changes of the thoracolumbar spine. No compression deformity. 2. Moderate degenerative changes of the lumbar spine, most prominent at L2/3. No compression deformity.
== END 2022-12-08 13:30 | disposition home or self-care (01) ==
LOC: HO.XRAY 13:29
PROVIDERS: PCP Internal Medicine; Visit Provider Nurse Practitioner Family
DX: M54.41 Lumbago with sciatica, right side (principal); M96.1 Postlaminectomy syndrome, not elsewhere classified; M47.816 Spondylosis without myelopathy or radiculopathy, lumbar region; M54.16 Radiculopathy, lumbar region; Z79.84 Long term (current) use of oral hypoglycemic drugs
CPT/HCPCS: 72072; 72114; 99202

== ENCOUNTER 2023-02-01 08:49 | Outpatient (REF) | payer MEDICARE, SELFPAY ==
[2023-02-01 09:01] LABS: MANUAL DIFF FLAG NO
[2023-02-01 09:33] LABS: Basophils Absolute Auto 0.1 X10*3/uL (0.0-0.2); Basophils Percent Auto 0.7 % (0-2); Eosinophils Absolute Auto 0.2 X10*3/uL (0.0-0.4); Eosinophils Percent Auto 1.5 % (0-4); Hematocrit 42.1 % (37.0-47.0); Hemoglobin 13.4 g/dl (12.0-16.0); Imm Gran Abs Auto 0.05 X10*3/uL (0.00-0.03); Imm Gran Pct Auto 0.4 % (0.0-0.4); Lymphocytes Absolute Auto 4.3 X10*3/uL (1.2-4.9); Lymphocytes Percent Auto 35.4 % (20-40); Mean Corpuscular HGB Conc 31.8 g/dl (31.0-35.0); Mean Corpuscular Hemoglobin 27.6 pg (27.0-33.0); Mean Corpuscular Volume 86.6 fL (80.0-98.0); Mean Platelet Volume 12.2 fL (9.4-12.3); Monocytes Absolute Auto 0.7 X10*3/uL (0.1-1.2); Monocytes Percent Auto 5.7 % (2-11); Neutrophils Absolute Auto 6.9 x10*3/uL (2.0-8.3); Neutrophils Percent Auto 56.3 % (45-73); Platelet Count 213 X10*3/uL (160-400); Red Blood Count 4.86 X10*6/uL (4.20-5.50); Red Cell Distribution Width 13.2 % (11.0-16.0); White Blood Count 12.2 X10*3/uL (4.8-10.8)
[2023-02-01 10:07] LABS: Alanine Aminotransferase 10 U/L (0-31); Albumin Level 3.9 g/dL (3.5-5.0); Alkaline Phosphatase 106 U/L (39-117); Anion Gap 16 (12-20); Aspartate Amino Transferase 15 U/L (5-31); Bilirubin Direct 0.1 mg/dL (0.0-0.5); Bilirubin Total 0.4 mg/dL (0.0-1.0); Blood Urea Nitrogen 24 mg/dL (9-16); Calcium 9.4 mg/dL (8.4-10.2); Carbon Dioxide 22 mmol/L (22-29); Chloride 104 mmol/L (96-108); Estimated Glomerular Filt Rate > 60; Glucose Random 147 mg/dL (60-115); Potassium 4.2 mmol/L (3.3-5.1); Sodium 138 mmol/L (135-145); Total Protein 7.4 g/dL (6.5-8.0)
[2023-02-01 11:31] LABS: Creatinine Urine 170.55 mg/dL; Microalbum/Creatinine Ratio Ur 9.9 ug/mg cr
== END 2023-02-01 08:50 | disposition home or self-care (01) ==
LOC: HO.LAB 08:49
PROVIDERS: PCP Internal Medicine; Visit Provider Internal Medicine
DX: Z00.00 Encounter for general adult medical examination without abnormal findings (principal); I10 Essential (primary) hypertension
CPT/HCPCS: 36415; 80048; 80076; 82043; 85025

== ENCOUNTER 2023-02-14 14:46 | Outpatient (AMB) | payer MEDICARE, MEDICAID, SELFPAY ==
[2023-02-14 15:21] VITALS: BP 115/66; PULSE 87; BMI 33.1
--- NOTE | 2023-02-14 15:21 | A.OFFVIS_ITS ---
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 Patient is avoiding dietary triggers. Discussed with patient the importance of staying upright for minimal 3 hours after meals. Patient can continue current treatment Constipation Patient reports that she has been moving her bowels much better now that she is taking fiber supplement and docusate sodium. Patient denies any constipation. Denies melena, hematochezia, unintentional weight loss or ribbon like stools. Patient will need colonoscopy in November of 2024. I will see patient in 1 year, sooner on as needed basis. Patient is agreeable to this plan and verbalizes understanding of instructions. She was given the opportunity to ask questions all questions answered. ? Thank you for allowing me to participate in her care TODAY'S VISIT Patient is here today for follow-up. Patient reports that she has been doing very well. States that she is taking famotidine at bedtime and pantoprazole in the morning and her symptoms of acid reflux or suppressed. Patient states that she also is avoiding dietary triggers. Denies eating late at night. Patient states that she is moving her bowels well. Denies any melena, hematochezia, unintentional weight loss or ribbon like stools. Patient is taking Citrucel every day drink plenty fluids and eating fruits and vegetables. Patient denies dyspepsia, dysphagia or odynophagia. 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 [employer] Systems Const Denies weight gain and Denies weight loss ENT Reports no additional complaints, Denies dysphagia and Denies odynophagia Card Reports no additional complaints Resp Reports no additional complaints GI Denies abdominal pain, Denies belching, Denies melena, Denies bloating, Denies change in bowel habits, Denies dysphagia, Denies excessive flatus, Denies dyspepsia, Denies heartburn, Denies diarrhea, Denies loose stools, Denies nausea, Denies odynophagia and Denies vomiting Musc Reports no additional complaints Neuro Reports no additional complaints Psych Reports no additional complaints Endo Reports no additional complaints Physical Exam Vital Signs: Last Vital Signs Pulse 87 02/14/23 15:21 BP 115/66 02/14/23 15:21 BMI result Body Mass Index 33.1 Const General: healthy appearing, no acute distress and well developed Nutritional Appearance: obese Orientation/consciousness: patient oriented x3 HEENT Head: Yes normal to inspection, Yes normocephalic and Yes atraumatic Face and sinus: Yes normal facial exam Mouth: Normal oral and palatal mucosa present Throat: Yes posterior oropharynx normal, Yes tonsils normal and Yes uvula midline Eyes General: appearance normal, both eyes and all related structures Neck Neck: Yes normal visual inspection, Yes full ROM and Yes trachea midline Thyroid: Thyroid normal Resp Effort & Inspection: normal respiratory effort, able to speak in complete sentences, no tracheal deviation and symmetric chest movement Auscultation: clear to auscultation bilaterally Cardio Rate: regular rate Heart sounds: S1 normal heart sound present and S2 normal heart sound present GI Inspection: Yes normal to inspection, No distended and Yes obesity Palpation (GI): Soft to palpation, not firm, nontender and No hepatosplenomegaly present Auscultation: normal bowel sounds General: Yes no CVA tenderness Back/Spine/Pelvis Back: no CVA tenderness Skin General skin exam: elasticity normal, turgor normal and dry skin Neuro General: patient oriented x3 Psych Appearance: grossly normal Mental Status: mental status grossly normal Speech and movement: Normal speech and movement present Assessment & Plan Assessment & Plan (1) GERD (gastroesophageal reflux disease): Code(s): K21.9 - Gastro-esophageal reflux disease without esophagitis Qualifiers: Esophagitis presence: esophagitis presence not specified Qualified Code(s): K21.9 - Gastro-esophageal reflux disease without esophagitis Plan: Continue current treatment with pantoprazole and famotidine the patient can try to take famotidine on as needed basis. Patient denies any dyspepsia, dysphagia or odynophagia. Discussed with patient avoiding dietary triggers and late night snacking. Staying upright for minimum 3 hours after meals discussed with patient. (2) Constipation: Code(s): K59.00 - Constipation, unspecified Qualifiers: Constipation type: slow transit constipation Qualified Code(s): K59.01 - Slow transit constipation Plan: Continue taking Citrucel. Patient was encouraged to increase fluid intake and activity to promote better bowel motility. I will see her in 1 year, sooner on as needed basis. Patient is agreeable to this plan and verbalizes understanding of instructions. She was given the opportunity to ask questions and all questions answered. Thank you for allowing me to participate in her care Medications: Refilled famotidine 40 mg PO BEDTIME 90 tabs 3RF K21.9 - Gastro-esophageal reflux disease without esophagitis pantoprazole take one tablet half an hour before breakfast 40 mg PO DAILY 90 tabs 2RF K21.9 - Gastro-esophageal reflux disease without esophagitis Discontinued docusate sodium Discontinued Reason: Doctor's Order 100 mg PO BEDTIME 90 caps 3RF K59.00 - Constipation, unspecified Coding Level of Care Code Est Pt Level 3 (99888) Diagnoses GERD (gastroesophageal reflux disease) K21.9 Esophagitis presence: esophagitis presence not specified Constipation K59.01 Constipation type: slow transit constipation Time Spent (min) 25 Comment 15 minutes spent with patient and additional 10 minutes spent reviewing her records
== END 2023-02-14 15:44 | disposition home or self-care (01) ==
PROVIDERS: PCP Internal Medicine; Visit Provider Nurse Practitioner Family
DX: K21.9 Gastro-esophageal reflux disease without esophagitis (principal); K59.01 Slow transit constipation
CPT/HCPCS: 99213

== ENCOUNTER → 2023-02-14 14:46 | Outpatient (BNVA) | payer MEDICARE, MEDICAID, SELFPAY | PROVIDERS: PCP Internal Medicine; Visit Provider Nurse Practitioner Family | DX: K21.9 Gastro-esophageal reflux disease without esophagitis (principal); K59.01 Slow transit constipation | CPT/HCPCS: 99212 ==

== ENCOUNTER 2023-02-23 10:14 | Outpatient (REF) | payer MEDICARE, MEDICAID, SELFPAY ==
--- NOTE | ~2023-02-23 | MR_ITS ---
EXAMINATION: MR LUMBAR SPINE WITHOUT CONTRAST CLINICAL INFORMATION: Lumbar radiculopathy. COMPARISON: Lumbar spine radiograph 12/08/2022. TECHNIQUE: MRI of the lumbar spine was obtained using routine sequences without contrast. FINDINGS: There is nonspecific reversal of the lumbar lordosis. Alignment is otherwise normal and sagittal dimension. Vertebral heights are preserved. Mixed predominant type II degenerative endplate changes at L4-L5. There is loss of intervertebral disc height and T2 signal intensity at multiple levels related to disc degeneration. The tip of the conus medullaris is located at L1. No mass effect on the conus. Visualized distal cord signal intensity is normal. At T12-L1 the annular contour is normal. No canal stenosis. No mass effect on the traversing or foraminal nerve roots. At L1-L2 there is a right central extrusion superimposed upon a bulging disc with 0.9 cm caudal subligamentous extension of extruded disc material. Bilateral facet degenerative change. No canal stenosis. No mass effect on the traversing or foraminal nerve roots. At L2-L3 and there is a left foraminal to far lateral annular fissure associated with a bulging disc. Bilateral facet degenerative change. Mild canal stenosis. No mass effect on the traversing or foraminal nerve roots. At L3-L4 there is a diffusely bulging disc and bilateral facet degenerative change. No canal stenosis. Subarticular zone narrowing causes abutment of both traversing L4 nerve roots. No foraminal nerve root compression. At L4-L5 there chronic changes of a left hemilaminectomy. There is a left far lateral protrusion superimposed upon a bulging disc. Bilateral facet degenerative change. No canal stenosis. Subarticular zone narrowing causes abutment of both traversing L5 nerve roots. Mild to moderate mass effect on the extraforaminal segment of left L4 nerve root. At L5-S1 there is a broad shallow central protrusion. Bilateral facet degenerative change. No canal stenosis. Subarticular zone narrowing causes asymmetric compression of the right traversing S1 nerve roots. No foraminal nerve root compression. Limited visualization of the retroperitoneal anatomy reveals no abnormal finding. Psoas and paraspinal muscle groups are symmetric. MR/MR lumbar spine wo con IMPRESSION: There is multilevel degenerative spondylosis of the lumbar spine. Mild canal stenosis at L2-L3. Otherwise no canal compromise. There are varying degrees of mass effect on the traversing, foraminal, and extraforaminal segments of the nerve roots as described above. For instance at L5-S1 there is asymmetric compression of the right traversing S1 nerve roots. There is also mild to moderate mass effect on the extraforaminal segment of left L4 nerve root related to degenerative changes at L4-L5.
== END 2023-02-23 10:15 | disposition home or self-care (01) ==
LOC: HO.MRI 10:14
PROVIDERS: PCP Internal Medicine; Visit Provider Nurse Practitioner Family
DX: M54.16 Radiculopathy, lumbar region (principal); M47.816 Spondylosis without myelopathy or radiculopathy, lumbar region; M96.1 Postlaminectomy syndrome, not elsewhere classified
CPT/HCPCS: 72148

== ENCOUNTER 2023-03-01 14:51 | Outpatient (AMB) | payer OTHER, MEDICAID, SELFPAY ==
--- NOTE | 2023-03-01 14:52 | MHC.OFFVIS ---
Intake Vital Signs 03/01/23 14:57 Height 5 ft 4 in Weight 199 lb BMI 34.2 BP 183/84 H Blood Pressure Location Rt brachial Position Sitting Pulse 94 Pulse Source Pulse Oximeter Pulse Oximetry (%) 98 Oxygen Delivery Method Room Air Intake Visit Reasons: FU/MRI Results Intake Note: Pain today 03/18 Basketballs And Footballs Reverser Required: Yes Basketballs And Footballs Reverser Language: Marketing Strategy Manager Name: Sumit #[id number] Accompanied by: Self / Same As Patient Allergies penicillin V Allergy (Unknown, Verified 02/14/23 15:21) Unknown Penicillins [PENICILLINS] Allergy (Unknown, Verified 02/14/23 15:21) N/S Sulfacet-R Allergy (Unknown, Uncoded 02/14/23 15:21) Unknown HPI HPI Comments History of Present Illness Details Patient presents today for follow up to discuss recent lumbar spine MRI results. She reports increased back pain with prolonged standing, walking and bending, with radiation to both legs, laterally and posteriorly with numbness and tingling on the left. Patient is not interested in therapeutic ALY injections to alleviate her radicular back pain symptoms due to short term pain relief in the past with partial benefit. We also reviewed neuromodulation with SCS trial and she is interested to proceed with this. Currently she reports taking tramadol, baclofen, NSAIDs and lidocaine patches with partial pain relief. Pain interferes with her ADLs, sleep and quality of life. We will proceed with referral for Behavioral evaluation. Denies any bladder or bowel incontinence, or saddle anesthesia. PRIOR: Patient is a pleasant 72 years old female presents today for follow-up for low back pain after a long absence. She was previously seen by Dr. Hogue about 3 years ago 4 pos-laminectomy syndrome, significant lumbar degenerative disc disease and left-sided radiculopathy. Patient reports her left radicular pain has resolved few years ago with injections. However, her back pain return this July this right-sided sciatica symptoms and since then has been getting progressively worse. She denies any left leg pain. Denies any recent injury, trauma, or falls. Back pain is easily reproduced is flexion or extension is positive SLR testing of the right. She has been treating her pain with heating pad, ibuprofen, lidocaine patches, Tylenol, and tramadol. Patient reports she also completed physical therapy in the past but did not make any gains in functioning or reduction of pain. Patient reports she continues to participate in daily home exercise program and doing gentle stretching as tolerated. Pain has been affecting her daily activities, functioning, mood as social interactions. She rates her pain at 9/10 and describes her pain as constant burning, scalding, searing, tight, squeezing, and tearing. Patient denies any fever, abdominal or groin pain, bladder or bowel incontinence, or saddle anesthesia. She reports right lower extremity weakness due to pain. PRIOR 04/05/2020 Dr. Hogue: Michelle returns to the office today for a follow up after 1 year of absence. She was initially seen for lumbar postlaminectomy syndrome. She had prior disc surgery at [facility] and also had prior injections with some benefit. She had neurosurgical evaluation due to continued pain and was not recommended further surgical interventions. She had continued aching lower back pain with left lower extremity radiation. She underwent left L4-5 and L5-S1 TFESI about one month ago on 05/06/19 and reports complete resolution of lower back and left leg pain. She reported that her pain came back in September however due to COVID-19 pandemics she decided to wait until now. Her pain is getting worse. After MRI review she was recommended injections, with the possibility of a spinal cord stimulation trial depending on results. She continues to receive some benefit from NSAIDs and Tramadol. PRIOR 04/16/2019 Dr. Hogue: Ms. Lulu Erickson is here with complaining on pain in the lumbar spine without radiation. She reports that this pain started many years ago she has a history of a surgery on 1 disc of her lumbar spine in [facility] she does not know for sure what disc was operated she reports that all 6 discs of her lumbar spine is in very poor condition. She reports that her pain is increased when seating and lying down. She reports that the pain is alleviated by pain medications ibuprofen and tramadol she received from primary care physician. The pain is most severe in the morning and she has some pain relief in the afternoon she was subject of several injections in [place] as well as in [place]. She does not know the nature of the injections she had evaluation by a neurosurgeon and no surgery apparently were recommended. She reports that those injections were not very helpful them longest injections in [place] with [place] [facility] was lasting about 1-2 weeks. She reports that [place] injections were lasting longer she will like those injections however she was told that insurance company does not cover the cost of the injections. She reports that those wore regenerative injections. She is interested in continuation of the injections here. She reported today that she was ready to bring us the results of the studies, results of the injections and the names of the injections and evaluation of a neurosurgeon. However she reported that she forgot does papers in her household because she was running late. Her past medical history significant for diabetes she is on Metformin. She also has elevated cholesterol and she is on pravastatin. Her past surgical history significant for spinal surgery as above. She also had multiple procedures and female organs C-sections bilateral tubal ligation and hysterectomy. She denies smoking she denies drinking she denies recreational drugs she reports for pain control she is having tramadol prescribed by her primary care physician. She also takes along with tramadol ibuprofen [id number]. 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 Alert and oriented. Mood and affect appropriate. Follows and participates in conversation appropriately. Respiratory effort is unlabored. Able to transition from sit to stand unassisted. Back/Spine/Pelvis Other: Antalgic gait, no limping. Lumbar flexion and extension reproduce significant pain. Demonstrates 5/5 left and 4/5 right strength of quadriceps bilaterally as well as 5/5 flexion/dorsiflexion of bilateral feet against resistance. 2+ pedal pulses bilaterally. Seated straight leg rise with dorsiflexion positive bilaterally. +1 patellar and achilles reflexes bilaterally. Facet loading test positive bilaterally. Cezar's test and Stinchfield tests are negative bilaterally. No groin pain with I/E hip rotations. Valsalva maneuver is negative. Cervical Spine: cervical ROM normal and No Cervical spine tenderness Thoracic/Lumbar Spine: thoracic and lumbar spine normal to inspection, Thoracic/lumbar spine scar(s), Lasegue's sign positive bilateral and localized, pain with thoraco-lumbar ROM, paraspinal muscle tenderness, thoraco-lumbar ROM limited, No thoracic spinal tenderness and lumbar spinal tenderness Pelvis: buttock tenderness on the left and sciatic notch tenderness on the left Sacroiliac joints: bilaterally tender to palpation Results Reviewed Results Reviewed: MR LUMBAR SPINE WITHOUT CONTRAST 02/23/23 CLINICAL INFORMATION: Lumbar radiculopathy. COMPARISON: Lumbar spine radiograph 12/08/2022. FINDINGS: There is nonspecific reversal of the lumbar lordosis. Alignment is otherwise normal and sagittal dimension. Vertebral heights are preserved. Mixed predominant type II degenerative endplate changes at L4-L5. There is loss of intervertebral disc height and T2 signal intensity at multiple levels related to disc degeneration. The tip of the conus medullaris is located at L1. No mass effect on the conus. Visualized distal cord signal intensity is normal. At T12-L1 the annular contour is normal. No canal stenosis. No mass effect on the traversing or foraminal nerve roots. At L1-L2 there is a right central extrusion superimposed upon a bulging disc with 0.9 cm caudal subligamentous extension of extruded disc material. Bilateral facet degenerative change. No canal stenosis. No mass effect on the traversing or foraminal nerve roots. At L2-L3 and there is a left foraminal to far lateral annular fissure associated with a bulging disc. Bilateral facet degenerative change. Mild canal stenosis. No mass effect on the traversing or foraminal nerve roots. At L3-L4 there is a diffusely bulging disc and bilateral facet degenerative change. No canal stenosis. Subarticular zone narrowing causes abutment of both traversing L4 nerve roots. No foraminal nerve root compression. At L4-L5 there chronic changes of a left hemilaminectomy. There is a left far lateral protrusion superimposed upon a bulging disc. Bilateral facet degenerative change. No canal stenosis. Subarticular zone narrowing causes abutment of both traversing L5 nerve roots. Mild to moderate mass effect on the extraforaminal segment of left L4 nerve root. At L5-S1 there is a broad shallow central protrusion. Bilateral facet degenerative change. No canal stenosis. Subarticular zone narrowing causes asymmetric compression of the right traversing S1 nerve roots. No foraminal nerve root compression. Limited visualization of the retroperitoneal anatomy reveals no abnormal finding. Psoas and paraspinal muscle groups are symmetric. IMPRESSION: There is multilevel degenerative spondylosis of the lumbar spine. Mild canal stenosis at L2-L3. Otherwise no canal compromise. There are varying degrees of mass effect on the traversing, foraminal, and extraforaminal segments of the nerve roots as described above. For instance at L5-S1 there is asymmetric compression of the right traversing S1 nerve roots. There is also mild to moderate mass effect on the extraforaminal segment of left L4 nerve root related to degenerative changes at L4-L5. Assessment & Plan Assessment & Plan (1) Lumbar radiculopathy, chronic: Code(s): M54.16 - Radiculopathy, lumbar region (2) Lumbar spondylosis: Code(s): M47.816 - Spondylosis without myelopathy or radiculopathy, lumbar region (3) Postlaminectomy syndrome: Code(s): M96.1 - Postlaminectomy syndrome, not elsewhere classified Plan Lumbar spine MRI results discussed with patient is the assistance of credit cashier in great detail. Patient declined therapeutic back injections to alleviate her radicular symptoms at this time. She reports such injections provided her minimal benefit in the past. Patient denies any cauda equina syndrome symptoms at this time. Patient is aware to call if pain worsens or if she develops any red flag symptoms to seek emergency care. Patient jocelyne amenable to proceeding with trial of spinal cord stimulation for post laminectomy syndrome. Placed referral for psychology clearance in anticipation of SCS trial. Extensive discussion regarding the risks and benefits of SCS trial and implant procedures and all questions were answered to patient satisfaction. Will proceed with Nevro HFX trial pending psychology clearance. Follow-up as needed. Coding Level of Care Code Est Pt Level 4 (76990) Diagnoses Lumbar radiculopathy, chronic M54.16 Lumbar spondylosis M47.816 Postlaminectomy syndrome M96.1
[2023-03-01 14:57] VITALS: BP 183/84; PULSE 94; O2SAT 98; BMI 34.2
== END 2023-03-01 15:16 | disposition home or self-care (01) ==
PROVIDERS: PCP Internal Medicine; Visit Provider Nurse Practitioner Family
DX: M54.16 Radiculopathy, lumbar region (principal); M47.816 Spondylosis without myelopathy or radiculopathy, lumbar region; M96.1 Postlaminectomy syndrome, not elsewhere classified
CPT/HCPCS: 99214

== ENCOUNTER → 2023-03-01 14:51 | Outpatient (BNVA) | payer MEDICARE, MEDICAID, SELFPAY | PROVIDERS: PCP Internal Medicine; Visit Provider Nurse Practitioner Family | DX: M54.16 Radiculopathy, lumbar region (principal); M47.816 Spondylosis without myelopathy or radiculopathy, lumbar region; M96.1 Postlaminectomy syndrome, not elsewhere classified | CPT/HCPCS: 99212 ==

== ENCOUNTER 2023-12-13 14:30 | Outpatient (REF) | payer MEDICARE, MEDICAID, SELFPAY ==
[2023-12-13 16:08] LABS: MANUAL DIFF FLAG NO
[2023-12-13 16:18] LABS: Basophils Absolute Auto 0.1 X10*3/uL (0.0-0.2); Basophils Percent Auto 0.6 % (0-2); Eosinophils Absolute Auto 0.1 X10*3/uL (0.0-0.4); Eosinophils Percent Auto 1.3 % (0-4); Hematocrit 41.9 % (37.0-47.0); Hemoglobin 13.3 g/dl (12.0-16.0); Imm Gran Abs Auto 0.04 X10*3/uL (0.00-0.03); Imm Gran Pct Auto 0.4 % (0.0-0.4); Lymphocytes Absolute Auto 2.7 X10*3/uL (1.2-4.9); Lymphocytes Percent Auto 26.2 % (20-40); Mean Corpuscular HGB Conc 31.7 g/dl (31.0-35.0); Mean Corpuscular Hemoglobin 27.7 pg (27.0-33.0); Mean Corpuscular Volume 87.1 fL (80.0-98.0); Mean Platelet Volume 12.2 fL (9.4-12.3); Monocytes Absolute Auto 0.4 X10*3/uL (0.1-1.2); Monocytes Percent Auto 4.2 % (2-11); Neutrophils Percent Auto 67.3 % (45-73); Platelet Count 236 X10*3/uL (160-400); Red Blood Count 4.81 X10*6/uL (4.20-5.50); Red Cell Distribution Width 12.6 % (11.0-16.0); White Blood Count 10.3 X10*3/uL (4.8-10.8)
[2023-12-13 16:33] LABS: Anion Gap 10 (12-20); Blood Urea Nitrogen 20 mg/dL (9-16); Calcium 9.6 mg/dL (8.4-10.2); Carbon Dioxide 29 mmol/L (22-29); Chloride 105 mmol/L (96-108); Estimated Glomerular Filt Rate 53; Glucose Random 303 mg/dL (60-115); Potassium 4.7 mmol/L (3.3-5.1); Sodium 139 mmol/L (135-145)
[2023-12-14 08:27] LABS: ~HepC Num1 0.15 S/CO (0.00-0.79); ~Hepatitis C Antibody Nonreactive (Nonreactive)
== END 2023-12-13 14:31 | disposition home or self-care (01) ==
LOC: HO.HHCL 14:30
PROVIDERS: Visit Provider Internal Medicine
DX: E11.9 Type 2 diabetes mellitus without complications (principal)
CPT/HCPCS: 36415; 80048; 85025; 86803

== ENCOUNTER 2023-12-26 14:45 | Outpatient (REF) | payer MEDICARE, SELFPAY ==
--- NOTE | ~2023-12-26 | MM_ITS ---
EXAMINATION: MM SCREENING DIGITAL BREAST TOMOSYNTHESIS, BILATERAL CLINICAL INFORMATION: Screening. Asymptomatic. COMPARISON: Mammography: This study is compared with prior exams dating back to 2013. TECHNIQUE: Digital breast tomosynthesis is performed in both the craniocaudal and mediolateral oblique views along with computer-aided detection (CAD). Synthesized 2D images are generated from the tomosynthesis. FINDINGS: There are scattered areas of fibroglandular density (ACR BI-RADS breast composition Category b). There are no significant masses, abnormal calcifications, or other abnormalities. MM/MM tomosynthesis screening BI IMPRESSION: No mammographic evidence of malignancy. ASSESSMENT: BI-RADS BI-RADS 1 - Negative RECOMMENDATION: Routine annual mammography screening. 1 year F/U This examination should not preclude the clinical evaluation of a suspicious palpable abnormality. This patient's information was entered into a reminder system with a target due date for their next mammogram.
== END 2023-12-26 14:46 | disposition home or self-care (01) ==
LOC: HO.MAMMO 14:45
PROVIDERS: PCP Internal Medicine; Visit Provider Internal Medicine
DX: Z12.31 Encounter for screening mammogram for malignant neoplasm of breast (principal)
CPT/HCPCS: 77063; 77067

== ENCOUNTER → 2023-12-26 14:45 | Outpatient (BNV) | payer MEDICARE, SELFPAY | PROVIDERS: PCP Internal Medicine; Visit Provider Radiology Diagnostic Radiology | DX: Z12.31 Encounter for screening mammogram for malignant neoplasm of breast (principal) | CPT/HCPCS: 77063; 77067 ==

== ENCOUNTER 2024-02-13 14:56 | Outpatient (AMB) | payer MEDICARE, MEDICAID, SELFPAY ==
--- NOTE | 2024-02-13 14:58 | MHC.OFFVIS ---
Vital Signs 02/13/24 15:00 Height 5 ft 4 in Weight 198 lb 6.656 oz BMI 34.1 BP 124/74 Blood Pressure Location Rt brachial Position Sitting Pulse 88 Pulse Source Pulse Oximeter Pulse Oximetry (%) 96 Oxygen Delivery Method Room Air Intake Visit Reasons: 1 year follow up Intake Note: Michelle presents in office today for a scheduled 1 year FUV. CC; Michelle was rx'd famotidine at her last visit. No lab orders were placed. Pt reports that since her last visit, she has been doing rather well. Pt does report still experiencing some difficulties with diarrhea and not emptying her bowels completely. Pt reports that she had purchased magnesium citrate from [employer] per their leg cramps. Pt is unsure if this could be causing the intermittent diarrhea issues. County Or City Auditor Required: Yes County Or City Auditor Name: [id number] Taty Allergies penicillin V Allergy (Unknown, Verified 02/13/24 15:08) Unknown Penicillins [PENICILLINS] Allergy (Unknown, Verified 02/13/24 15:08) N/S Sulfacet-R Allergy (Unknown, Uncoded 02/14/23 15:21) Unknown HPI HPI 1 year follow up: Details: LAST VISIT GERD (gastroesophageal reflux disease) Continue current treatment with pantoprazole and famotidine the patient can try to take famotidine on as needed basis. Patient denies any dyspepsia, dysphagia or odynophagia. Discussed with patient avoiding dietary triggers and late night snacking. Staying upright for minimum 3 hours after meals discussed with patient. Constipation Continue taking Citrucel. Patient was encouraged to increase fluid intake and activity to promote better bowel motility. I will see her in 1 year, sooner on as needed basis. Patient is agreeable to this plan and verbalizes understanding of instructions. She was given the opportunity to ask questions and all questions answered. ? Thank you for allowing me to participate in her care Plan Medications Refilled famotidine 40 mg PO BEDTIME 90 tabs 3RF K21.9 - Gastro-esophageal reflux disease without esophagitis pantoprazole take one tablet half an hour before breakfast 40 mg PO DAILY 90 tabs 2RF K21.9 - Gastro-esophageal reflux disease without esophagitis Discontinued docusate sodium Discontinued Reason: Doctor's Order 100 mg PO BEDTIME 90 caps 3RF K59.00 - Constipation, unspecified TODAY'S VISIT: Patient is here today for follow-up. For the most part patient reports that she has been feeling well. Takes pantoprazole in the morning and famotidine at night time. Patient states that she is feeling well. Denies dyspepsia, dysphagia or odynophagia. Patient however reports that she lately has been having diarrhea. Patient states that she bought magnesium on [employer] and since she started taking it she feels like her stools are more watery she has bowel movements more often. Patient denies melena, hematochezia, unintentional weight loss or ribbon like stools. Patient reports to have good appetite. Denies any nausea or vomiting. Denies any abdominal pain or discomfort. 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 Review of Systems Const Denies weight gain and Denies weight loss ENT Reports no additional complaints, Denies dysphagia and Denies odynophagia Card Reports no additional complaints Resp Reports no additional complaints GI Denies abdominal pain, Denies belching, Denies melena, Denies bloating, Denies change in bowel habits, Denies dysphagia, Denies excessive flatus, Denies dyspepsia, Denies heartburn, Denies diarrhea, Reports loose stools, Denies nausea, Denies odynophagia and Denies vomiting Reports no additional complaints Musc Reports no additional complaints Neuro Reports no additional complaints Psych Reports no additional complaints Endo Reports no additional complaints Physical Exam Vital Signs: Last Vital Signs Pulse 88 02/13/24 15:00 BP 124/74 02/13/24 15:00 Pulse Ox 96 02/13/24 15:00 Oxygen Delivery Method Room Air 02/13/24 15:00 BMI result Body Mass Index 34.1 Const General: healthy appearing and no acute distress Nutritional Appearance: obese Orientation/consciousness: patient oriented x3 Resp Effort & Inspection: normal respiratory effort, able to speak in complete sentences, no tracheal deviation and symmetric chest movement Auscultation: clear to auscultation bilaterally Cardio Rate: regular rate GI Inspection: Yes normal to inspection, No distended and Yes obesity Palpation (GI): Soft to palpation, not firm, nontender and No hepatosplenomegaly present Auscultation: normal bowel sounds General: Yes no CVA tenderness Back/Spine/Pelvis Back: no CVA tenderness Skin General skin exam: elasticity normal, turgor normal and dry skin Neuro General: patient oriented x3 Psych Appearance: grossly normal Mental Status: mental status grossly normal Assessment & Plan Assessment & Plan (1) GERD (gastroesophageal reflux disease): Code(s): K21.9 - Gastro-esophageal reflux disease without esophagitis Qualifiers: Esophagitis presence: without esophagitis Qualified Code(s): K21.9 - Gastro-esophageal reflux disease without esophagitis (2) Constipation: Code(s): K59.00 - Constipation, unspecified Qualifiers: Constipation type: slow transit constipation Qualified Code(s): K59.01 - Slow transit constipation (3) Diarrhea: Code(s): R19.7 - Diarrhea, unspecified Qualifiers: Diarrhea type: functional diarrhea Qualified Code(s): K59.1 - Functional diarrhea Plan Patient will stop taking magnesium or take different brand. Patient states that she bought magnesium citrate. Patient was recommended to start magnesium oxide instead. Continue current PPI and H2 rema. Avoid dietary triggers and late night snacking. Staying upright for minimum 3 hours after meals discussed with patient. Patient has appointment in June. We will discuss going for colonoscopy and possible endoscopy. She is agreeable to this plan and verbalizes understanding of instructions. She was given the opportunity to ask questions and all questions answered. Thank you for allowing me to participate in her care Coding Level of Care Code Est Pt Level 3 (91736) Diagnoses Gastroesophageal reflux disease without esophagitis K21.9 Esophagitis presence: without esophagitis Slow transit constipation K59.01 Constipation type: slow transit constipation Functional diarrhea K59.1 Diarrhea type: functional diarrhea Time Spent (min) 25 Comment 15 minutes spent with patient and additional 10 minutes spent reviewing her records
[2024-02-13 15:00] VITALS: BP 124/74; PULSE 88; O2SAT 96; BMI 34.1
== END 2024-02-13 15:30 | disposition home or self-care (01) ==
PROVIDERS: PCP Internal Medicine; Visit Provider Nurse Practitioner Family
DX: K21.9 Gastro-esophageal reflux disease without esophagitis (principal); K59.01 Slow transit constipation; K59.1 Functional diarrhea
CPT/HCPCS: 99213

== ENCOUNTER → 2024-02-13 14:56 | Outpatient (BNVA) | payer MEDICARE, SELFPAY | PROVIDERS: PCP Internal Medicine; Visit Provider Nurse Practitioner Family | DX: K21.9 Gastro-esophageal reflux disease without esophagitis (principal); K59.01 Slow transit constipation; K59.1 Functional diarrhea | CPT/HCPCS: 99212 ==

== ENCOUNTER 2025-06-12 15:38 | Outpatient (REF) | payer MEDICARE, MEDICAID, SELFPAY ==
[2025-06-12 18:27] LABS: MANUAL DIFF FLAG NO
[2025-06-12 18:40] LABS: Hematocrit 42.9 % (37.0-47.0); Hemoglobin 13.6 g/dl (12.0-16.0); Imm Gran Abs Auto 0.04 X10*3/uL (0.00-0.03); Imm Gran Pct Auto 0.4 % (0.0-0.4); Lymphocytes Absolute Auto 3.0 X10*3/uL (1.2-4.9); Mean Corpuscular HGB Conc 31.7 g/dl (31.0-35.0); Mean Corpuscular Hemoglobin 26.9 pg (27.0-33.0); Mean Corpuscular Volume 85.0 fL (80.0-98.0); NRBC Abs Auto 0.000 X10*3/uL (0.0-0.012); NRBC Pct Auto 0.0 /100WBC (0.0-0.2); Platelet Count 230 X10*3/uL (160-400); Red Blood Count 5.05 X10*6/uL (4.20-5.50); White Blood Count 11.2 X10*3/uL (4.8-10.8)
[2025-06-12 19:51] LABS: Alanine Aminotransferase 11 U/L (0-31); Albumin Level 4.0 g/dL (3.5-5.0); Alkaline Phosphatase 138 U/L (39-117); Anion Gap 11 (12-20); Aspartate Amino Transferase 19 U/L (5-31); Blood Urea Nitrogen 22 mg/dL (9-16); Calcium 9.4 mg/dL (8.4-10.2); Carbon Dioxide 26 mmol/L (22-29); Chloride 101 mmol/L (96-108); Cholesterol 245 mg/dL (<200); Estimated Glomerular Filt Rate 58; HDL Cholesterol 47 mg/dL (>40); Potassium 4.5 mmol/L (3.3-5.1); Sodium 133 mmol/L (135-145); Total Protein 7.2 g/dL (6.5-8.0); Triglycerides 225 mg/dL (<150)
[2025-06-13 08:56] LABS: HIV Num 1 0.05 S/CO (0.00-0.99); ~HepC Num1 0.12 S/CO (0.00-0.79); ~Hepatitis C Antibody Nonreactive (Nonreactive)
== END 2025-06-12 15:39 | disposition home or self-care (01) ==
LOC: HO.HHCL 15:38
PROVIDERS: PCP Internal Medicine; Visit Provider Internal Medicine
DX: Z11.4 Encounter for screening for human immunodeficiency virus [HIV] (principal); Z11.59 Encounter for screening for other viral diseases; Z13.21 Encounter for screening for nutritional disorder; E11.65 Type 2 diabetes mellitus with hyperglycemia
CPT/HCPCS: 36415; 80053; 80061; 82043; 82306; 82570; 83036; 84443; 85025; 86803; 87389